=== PATIENT | male | born 1985 | race Caucasian/White ===

== ENCOUNTER 2016-11-16 10:36 | Outpatient (CLI) | payer OTHER ==
[2016-11-16 10:48] LABS: BASOPHILS % 0.9 (0.0-1.5); EOSINOPHILS % 0.7 % (0.0-6.8); MEAN CORPUSCULAR HEMOGLOBIN 31.2 pg (28.0-34.0); MONOCYTES % 3.6 % (0.0-11.0); NEUTROPHILS # 7.7 # k/uL (1.4-7.7)
[2016-11-16 10:55] LABS: eGFR (African) > 60; eGFR (Non-African) > 60
--- NOTE | 2016-11-16 15:01 | Diagnostic Imaging Report ---
LIZ ZIEGLER [facility] [address] [facility] [address] [place] [address]. [id number] Report Submission Date: Nov 16, 2016 12:33:16 PM CDT Patient Study Name: DANIEL MERCHANT Date: Nov 16, 2016 11:17:35 AM CDT Modality Type: CT\SR Gender: M Description: CT ABD & PELVIS W/O CO : 81 Institution: [facility] Physician: LIZ ZIEGLER Examination: CT Abdomen/pelvis History: Left flank discomfort Comparison exams: None available Technique: CT Abdomen/pelvis without contrast protocol. Findings: 2 mm calcification involving a mid calyx of the right kidney. No suspicious left-sided calcification. Right ureter demonstrates a normal course through the abdomen and pelvis without abnormal dilation or central calcification. Left ureter is mildly dilated. At the left ureterovesicular junction is a 2 mm calcification. Bladder margin within normal limits. Liver, spleen, adrenal glands, pancreas and gallbladder are without irregularity given exam technique. No gallstone. Abdominal aorta without abnormal dilation or peripheral atherosclerotic disease. Cardiac silhouette not enlarged. No pericardial effusion. Bowel without contrast limiting evaluation. No evidence for acute mesenteric inflammation or free air. Stool throughout the large bowel limiting sensitivity. Appendix not well visualized. No pericecal inflammatory changes. No free fluid. Osseous structures are appropriate for age. Lung bases without infiltrate. Impression: Mildly obstructing distal left ureterolithiasis at the ureterovesicular junction. Right nephrolithiasis. No evidence for acute abdominal inflammatory process. No gallstone. No abnormal bowel dilation or inflammation. Electronically signed on Nov 16, 2016 12:33:16 PM CDT by: Vipul WEBER
== END 2016-11-16 10:37 ==
LOC: RAD 10:36
PROVIDERS: ATTEND General Practice
DX: N20.0 Calculus of kidney (principal); R31.9 Hematuria, unspecified
CPT/HCPCS: 74176; 80053; 85025